=== PATIENT | male | born 1960 | race Caucasian/White ===

== ENCOUNTER 2017-08-03 21:41 | Emergency (ER) | payer MEDICARE, MEDICAID, OTHER ==
[~2017-08-03] VITALS: Ht 162.6 cm; Wt 62.0 kg
[2017-08-03 21:48] VITALS: BP 126/73; PULSE 108; RESP 18; TEMP 98.2; O2SAT 93
[2017-08-03 22:19] LABS: AUTOMATED NEUTROPHIL # 3.6 TH/MM3 (1.8-7.7); BASOPHIL # 0.1 TH/MM3 (0-0.2); BASOPHIL % 1.2 % (0.0-2.0); EOSINOPHIL % 0.2 % (0.0-4.0); HEMATOCRIT 47.8 % (39.0-51.0); HEMO FLAGS DIFF FINAL; LYMPH % 29.3 % (9.0-44.0); LYMPHOCYTE # 1.7 TH/MM3 (1.0-4.8); MEAN CELL VOLUME 93.3 FL (80.0-100.0); MEAN CORPUSCULAR HEMOGLOBIN 32.3 PG (27.0-34.0); MEAN CORPUSCULAR HGB CONC 34.6 % (32.0-36.0); MONO % 7.7 % (0.0-8.0); NEUT % 61.6 % (16.0-70.0); PLATELET COUNT 133 TH/MM3 (150-450); RED BLOOD COUNT 5.12 MIL/MM3 (4.50-5.90); RED CELL DISTRIBUTION WIDTH 13.8 % (11.6-17.2); WHITE BLOOD COUNT 5.8 TH/MM3 (4.0-11.0)
[2017-08-03 22:25] LABS: ANION GAP 9 MEQ/L (5-15); BICARBONATE 25.9 MEQ/L (21.0-32.0); BLOOD UREA NITROGEN 16 MG/DL (7-18); CHLORIDE 103 MEQ/L (98-107); GLOMERULAR FILTRATION RATE 92 ML/MIN (>89); POTASSIUM 3.5 MEQ/L (3.5-5.1); SODIUM (NA) 138 MEQ/L (136-145)
[2017-08-03 22:27] LABS: ALT (GPT) 71 U/L (12-78); AST (GOT) 123 U/L (15-37)
[2017-08-03 22:30] LABS: ACETAMINOPHEN LESS THAN 2.0 MCG/ML (10.0-30.0); ALCOHOL 254 MG/DL (0-5); ALKALINE PHOSPHATASE 198 U/L (45-117); TOTAL BILIRUBIN ADULT 0.3 MG/DL (0.2-1.0)
[2017-08-04] MEDS ORDERED: LEXA10TA PO (00:12)
[2017-08-04] MEDS ORDERED: TRAZ300T2 PO (00:12)
[2017-08-04] MEDS ORDERED: ALBU6.7H INH (00:12)
[2017-08-04] MEDS ORDERED: SERO200T PO (00:12)
[2017-08-04] MEDS ORDERED: BUSP5TAB PO (00:12)
--- NOTE | 2017-08-04 00:12 | PD ---
HPI Chief Complaint: Psychiatric Symptoms Time Seen by Provider: 00:04 Travel History International Travel<30 days: No Contact w/Intl Traveler<30days: No Traveled to known affect area: No History of Present Illness HPI 56-year-old man who presents emergency Department under [place] act reportedly for being intoxicated and not taking his medications. He is a history of depression. On multiple medications as he states he's had taken for 3 days because he is been drinking. He reports on force was called by his ex- girlfriend because he threw her out of the house. [place] act states that he is been drinking and not taking his medications. No reference to being an immediate threat to himself or others. Patient denies suicidality or homicidality. History Past Medical History Narrative Medical Asthma Alcoholism Tobacco use Depression Social History Tobacco Use: Yes Allergies-Medications (Allergen,Severity, Reaction): Coded Allergies: Penicillins (Verified Allergy, Unknown, 08/03/17) Sulfa (Sulfonamide Antibiotics) (Verified Allergy, Unknown, 08/03/17) Review of Systems Except as stated in HPI: all other systems reviewed are Neg Physical Exam Narrative GENERAL: Well-appearing 56-year-old man, no acute distress. SKIN: Focused skin assessment warm/dry. NECK: Trachea midline. No JVD. CARDIOVASCULAR: Regular rate and rhythm. No murmur appreciated. RESPIRATORY: No accessory muscle use. Clear to auscultation. Breath sounds equal bilaterally. GASTROINTESTINAL: Abdomen soft, non-tender, nondistended. Hepatic and splenic margins not palpable. MUSCULOSKELETAL: No obvious deformities. No edema. NEUROLOGICAL: Awake and alert. No obvious cranial nerve deficits. Motor grossly within normal limits. Normal speech. PSYCHIATRIC: Pleasant, directable, no complaints. Denies SI or HI. Data Data Last Documented VS Vital Signs Date Time Temp Pulse Resp B/P (MAP) Pulse Ox O2 Delivery O2 Flow Rate FiO2 08/03/17 21:48 98.2 108 18 126/73 (90) 93 Orders Orders Complete Blood Count With Diff (08/03/17 21:53) Comprehensive Metabolic Panel (08/03/17 21:53) Psych Screen (08/03/17 21:53) Drug Screen, Random Urine (08/03/17 21:53) Alcohol (Ethanol) (08/03/17 21:53) Salicylates (Aspirin) (08/03/17 21:53) Tylenol (Acetaminophen) (08/03/17 21:53) Labs Laboratory Tests Test 08/03/17 22:00 08/03/17 22:54 White Blood Count 5.8 TH/MM3 Red Blood Count 5.12 MIL/MM3 Hemoglobin 16.5 GM/DL Hematocrit 47.8 % Mean Corpuscular Volume 93.3 FL Mean Corpuscular Hemoglobin 32.3 PG Mean Corpuscular Hemoglobin Concent 34.6 % Red Cell Distribution Width 13.8 % Platelet Count 133 TH/MM3 Mean Platelet Volume 7.8 FL Neutrophils (%) (Auto) 61.6 % Lymphocytes (%) (Auto) 29.3 % Monocytes (%) (Auto) 7.7 % Eosinophils (%) (Auto) 0.2 % Basophils (%) (Auto) 1.2 % Neutrophils # (Auto) 3.6 TH/MM3 Lymphocytes # (Auto) 1.7 TH/MM3 Monocytes # (Auto) 0.4 TH/MM3 Eosinophils # (Auto) 0.0 TH/MM3 Basophils # (Auto) 0.1 TH/MM3 CBC Comment DIFF FINAL Differential Comment Blood Urea Nitrogen 16 MG/DL Creatinine 0.86 MG/DL Random Glucose 134 MG/DL Total Protein 6.8 GM/DL Albumin 3.1 GM/DL Calcium Level 8.8 MG/DL Alkaline Phosphatase 198 U/L Aspartate Amino Transf (AST/SGOT) 123 U/L Alanine Aminotransferase (ALT/SGPT) 71 U/L Total Bilirubin 0.3 MG/DL Sodium Level 138 MEQ/L Potassium Level 3.5 MEQ/L Chloride Level 103 MEQ/L Carbon Dioxide Level 25.9 MEQ/L Anion Gap 9 MEQ/L Estimat Glomerular Filtration Rate 92 ML/MIN Salicylates Level 2.9 MG/DL Acetaminophen Level LESS THAN 2.0 MCG/ML Ethyl Alcohol Level 254 MG/DL Urine Opiates Screen NEG Urine Barbiturates Screen NEG Urine Amphetamines Screen NEG Urine Benzodiazepines Screen NEG Urine Cocaine Screen NEG Urine Cannabinoids Screen POS MDM Medical Decision Making Medical Screen Exam Complete: Yes Emergency Medical Condition: Yes Differential Diagnosis Intoxication, alcoholism, adjustment disorder, psych, other Narrative Course Medical decision-making new para 56-year-old man, pleasant, oriented, with capacity. He provides a coherent story that is not inconsistent with documented in his [place] act. He does not appear to be an immediate threat to himself or others. There is no reference to him at any point being suicidal or homicidal. He has medications at home. 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 He does not want to be here. Recommend outpatient follow-up. Diagnosis Primary Impression: Alcohol use Additional Instructions: Avoid alcohol use. Follow-up with your psychiatrist in the next one to 2 days. Continue current medications. Return to the emergency department for any worsening feelings of depression, suicidality, or any other new or worsening symptoms. Med/Other Pt SpecificInfo: No Change to Meds Disposition: 01 DISCHARGE HOME Condition: Stable Abisai Young MD Aug 04, 2017 00:12
== END 2017-08-04 00:48 | disposition home or self-care (01) ==
LOC: NEDAMB 21:41 → NEPD 08-04 00:48
DX: F10.229 Alcohol dependence with intoxication, unspecified (principal); F32.9 Major depressive disorder, single episode, unspecified; Y90.8 Blood alcohol level of 240 mg/100 ml or more; Z72.0 Tobacco use
CPT/HCPCS: 80053; 80307; 85025; 99283